=== PATIENT | male | born 1955 | race African-American/Black ===

== ENCOUNTER 2018-04-22 15:19 | Emergency (ER) | payer OTHER ==
[~2018-04-22] VITALS: Ht 188 cm; Wt 77.1 kg
[2018-04-22 15:41] VITALS: BP 137/80
[2018-04-22 15:54] VITALS: BP 137/80
--- NOTE | 2018-04-22 16:07 | Emergency Room Report ---
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 Otherwise denies any trauma Denies any headache neck pain Denies any chest pain or shortness of breath He essentially started walking to see if that would improve his symptoms after walking he did feel that the symptoms fully diminished and resolved patient has been without any symptoms since then And presents for evaluation He was told by a friend at this could be a sign of stroke Denies any weakness at this time Allergies: Coded Allergies: No Known Allergies (Unverified , 04/22/18) Patient History Past Medical History: see triage record Pertinent Family History: none Reviewed Nursing Documentation: PMH: Agreed; PSxH: Agreed Nursing Documentation-PM Past Medical History: No History, Except For Review of Systems All Other Systems: negative except mentioned in HPI Physical Exam Vital Signs Date Time Temp Pulse Resp B/P (MAP) Pulse Ox O2 Delivery O2 Flow Rate FiO2 04/22/18 15:33 98.3 59 16 137/80 98 Room Air 98.2 Sp02 EP Interpretation: reviewed, normal General Appearance: well appearing, no apparent distress Head: normocephalic, atraumatic Eyes: bilateral eye PERRL, bilateral eye EOMI ENT: hearing grossly normal, normal pharynx, TMs + canals normal, uvula midline Neck: full range of motion, supple, no meningismus, no bony tend Respiratory: lungs clear, normal breath sounds, no rhonchi, no respiratory distress, no retraction, no accessory muscle use Cardiovascular #1: normal peripheral pulses, regular rate, rhythm, no edema, no gallop, no JVD, no murmur Gastrointestinal: normal bowel sounds, non tender, soft, no mass, no organomegaly, non-distended, no guarding, no hernia, no pulsatile mass, no rebound Genitourinary: no CVA tenderness Musculoskeletal: normal inspection Neurologic: oriented x3, responsive, social services counselor III-XII nml as tested, motor strength/ tone normal, sensory intact Psychiatric: mood/affect normal Skin: normal color, no rash, warm/dry, palpation normal Lymphatic: normal inspection, no adenopathy Medical Decision Making Diagnostic Impression: Primary Impression: radiculopathy ER Course Patient's examination is fairly benign Equal fine patcher bilaterally There was initial complaint of the numbness involving the distal thumb pad and also the index pad which has resolved this occurred on Sunday Patient's symptoms do not appear to be consistent with new onset diabetes I do not suspect any obvious CVA Patient is provided outpatient follow-up with primary physician And requires close reevaluation Patient will return with any worsening concerns Last Vital Signs Date Time Temp Pulse Resp B/P (MAP) Pulse Ox O2 Delivery O2 Flow Rate FiO2 04/22/18 15:54 98.2 16 137/80 98 Room Air 98.2 04/22/18 15:33 59 Status: unchanged Disposition: HOME, SELF-CARE Condition: Stable Referrals: Dilip Saba MD Patient Instructions: Radicular Pain Additional Instructions: Your signs and symptoms at this time are not consistent with acute stroke. You have been provided with primary physician contact. Please follow-up appropriately in the next 2-3 days Sawyer Cruz DO Apr 22, 2018 16:07
== END 2018-04-22 15:56 | disposition home or self-care (01) ==
LOC: EMR 15:56
DX: M54.10 Radiculopathy, site unspecified (principal)
CPT/HCPCS: 99282